=== PATIENT | female | born 1975 | race Hispanic/Latino ===

== ENCOUNTER 2024-06-18 07:34 | Day surgery (SDC) | payer BC ==
[2024-06-18] VITALS (11 sets, daily range): BP systolic 101–140; BP diastolic 54–77; PULSE 67–78; RESP 14–18; TEMP 96.9–98.2
[~2024-06-18] VITALS: Ht 157.5 cm; Wt 130.6 kg
[~2024-06-18 07:34] MED LIST: ERGO500093 PO; MAGN400T40 PO; MULT-660 PO; OMEP20TA20 PO; [UNRECOGNIZED DRUG - CODE] PO
[2024-06-18] MEDS: 0.9%NACL 1000ML 1,000 ML IV ONE (07:59)
[2024-06-18] MEDS ORDERED: proPOFol 10 MG/ML 20ML VIAL IV ONE ×2 (09:42→09:56)
== END 2024-06-18 11:10 | disposition home or self-care (01) ==
LOC: ENDO 07:34 → DAH 07:34 → ENDO 11:10
PROVIDERS: ATTEND Internal Medicine Gastroenterology
DX: Z12.11 Encounter for screening for malignant neoplasm of colon (principal); K57.30 Diverticulosis of large intestine without perforation or abscess without bleeding; K31.9 Disease of stomach and duodenum, unspecified; K31.7 Polyp of stomach and duodenum; K64.0 First degree hemorrhoids; K21.00 Gastro-esophageal reflux disease with esophagitis, without bleeding; K44.9 Diaphragmatic hernia without obstruction or gangrene; K31.89 Other diseases of stomach and duodenum; R12 Heartburn; K76.0 Fatty (change of) liver, not elsewhere classified; E66.01 Morbid (severe) obesity due to excess calories; Z98.891 History of uterine scar from previous surgery; Z68.43 Body mass index [BMI] 50.0-59.9, adult; Z86.0101 Personal history of adenomatous and serrated colon polyps; Z79.899 Other long term (current) drug therapy
CPT/HCPCS: 43239; 45378; J7030; J2704 ×2; A4620; A4215 ×2; A4223; A4222; A4221; A4663; A4606; J3490